=== PATIENT | female | born 1990 | race Caucasian/White ===

== ENCOUNTER 2019-08-27 18:37 | Emergency (ER) | payer OTHER ==
[~2019-08-27] VITALS: Ht 175.3 cm; Wt 72.6 kg
[2019-08-27 18:42] VITALS: BP 134/90
[2019-08-27 19:03] LABS: URINE BILIRUBIN NEGATIVE (Negative); URINE BLOOD NEGATIVE (Negative); URINE CLARITY CLEAR; URINE COLOR YELLOW; URINE GLUCOSE-RANDOM* NEGATIVE (Negative); URINE KETONES NEGATIVE (Negative); URINE LEUKOCYTES-REFLEX NEGATIVE (Negative); URINE NITRITE-REFLEX NEGATIVE (Negative); URINE PROTEIN (DIPSTICK) NEGATIVE (Negative); URINE SPECIFIC GRAVITY 1.015 (1.005-1.035); URINE UROBILINOGEN 0.2 E.U./dl (0.2-1.0)
[2019-08-27 19:34] LABS: ABSOLUTE NEUTROPHILS 3.3 thou/uL (1.4-8.2); BASOPHILS 0.8 % (0.0-2.0); EOSINOPHILS 1.6 % (0.0-3.0); HEMATOCRIT 35.8 % (37.0-47.0); HEMOGLOBIN 11.9 gm/dL (12.0-15.0); MCHC 33.3 g/dL (28.0-37.0); MCV 84.1 fL (80.0-100.0); MONOCYTES 4.7 % (1.0-8.0); PLATELET COUNT 241 thou/uL (150-400); POLYS 53.9 % (36.0-66.0); RBC 4.26 mil/uL (4.20-5.00); WBC 6.2 thou/uL (4.0-11.0)
[2019-08-27 19:47] LABS: CALCIUM 8.8 mg/dL (8.5-10.1); CREATININE 0.8 mg/dL (0.6-1.0); POTASSIUM 3.5 mmol/L (3.5-5.1)
[2019-08-27 19:53] LABS: ALBUMIN 3.9 g/dL (3.4-5.0); TOTAL BILIRUBIN 0.2 mg/dL (<0.1-1.0); TOTAL PROTEIN 6.9 g/dL (6.4-8.2)
[2019-08-27] MEDS ORDERED: ONDANSETRON HCL4 M2 PO (21:05)
[2019-08-27] MEDS ORDERED: NORCO 5-325 TA1 EAC1 PO (21:05)
== END 2019-08-27 22:05 | disposition home or self-care (01) ==
LOC: ER 18:37
PROVIDERS: Physician Assistant
DX: K52.9 Noninfective gastroenteritis and colitis, unspecified (principal); R11.2 Nausea with vomiting, unspecified; Z88.8 Allergy status to other drugs, medicaments and biological substances

== ENCOUNTER 2019-11-03 18:54 | Emergency (ER) | payer OTHER ==
[~2019-11-03] VITALS: Ht 180.3 cm; Wt 72.6 kg
[~2019-11-03 18:54] MED LIST: NORCO 5-325 TA1 EAC1 PO; ONDANSETRON HCL4 M2 PO
[2019-11-03 19:35] LABS: ABSOLUTE NEUTROPHILS 3.9 thou/uL (1.4-8.2); BASOPHILS 0.5 % (0.0-2.0); EOSINOPHILS 0.6 % (0.0-3.0); HEMATOCRIT 34.2 % (37.0-47.0); HEMOGLOBIN 11.5 gm/dL (12.0-15.0); LYMPHOCYTES 21.8 % (24.0-44.0); MCH 27.1 pg (26.0-34.0); MCHC 33.4 g/dL (28.0-37.0); MCV 81.2 fL (80.0-100.0); MONOCYTES 4.7 % (1.0-8.0); PLATELET COUNT 241 thou/uL (150-400); POLYS 72.4 % (36.0-66.0); RBC 4.22 mil/uL (4.20-5.00); RDW 16.9 % (10.5-14.5); WBC 5.4 thou/uL (4.0-11.0)
[2019-11-03 19:39] LABS: URINE BILIRUBIN NEGATIVE (Negative); URINE BLOOD NEGATIVE (Negative); URINE CLARITY CLEAR; URINE COLOR YELLOW; URINE GLUCOSE-RANDOM* NEGATIVE (Negative); URINE KETONES TRACE (Negative); URINE LEUKOCYTES-REFLEX NEGATIVE (Negative); URINE NITRITE-REFLEX NEGATIVE (Negative); URINE PROTEIN (DIPSTICK) NEGATIVE (Negative); URINE SPECIFIC GRAVITY 1.025 (1.005-1.035); URINE UROBILINOGEN 0.2 E.U./dl (0.2-1.0)
[2019-11-03 19:50] LABS: CALCIUM 9.4 mg/dL (8.5-10.1); CREATININE 0.8 mg/dL (0.6-1.0); POTASSIUM 3.5 mmol/L (3.5-5.1)
[2019-11-03 19:55] LABS: ALBUMIN 4.1 g/dL (3.4-5.0); TOTAL BILIRUBIN 0.4 mg/dL (0.2-1.0); TOTAL PROTEIN 7.7 g/dL (6.4-8.2)
[2019-11-03] MEDS ORDERED: ZOFRAN ODT4 MG PO (23:22)
[2019-11-03 23:42] VITALS: BP 106/60
== END 2019-11-03 23:45 | disposition home or self-care (01) ==
LOC: ER 18:54
PROVIDERS: Emergency Medicine
DX: R10.32 Left lower quadrant pain (principal); R11.2 Nausea with vomiting, unspecified; R19.7 Diarrhea, unspecified; Z87.891 Personal history of nicotine dependence; Z79.899 Other long term (current) drug therapy; Z88.8 Allergy status to other drugs, medicaments and biological substances; Z90.49 Acquired absence of other specified parts of digestive tract

== ENCOUNTER 2020-02-12 10:02 | Emergency (ER) | payer OTHER ==
[~2020-02-12] VITALS: Ht 175.3 cm; Wt 74.8 kg
[~2020-02-12 10:02] MED LIST changes: +ZOFRAN ODT4 MG PO
[2020-02-12 10:43] LABS: URINE BILIRUBIN NEGATIVE (Negative); URINE BLOOD NEGATIVE (Negative); URINE COLOR YELLOW; URINE GLUCOSE-RANDOM* NEGATIVE (Negative); URINE KETONES NEGATIVE (Negative); URINE LEUKOCYTES-REFLEX NEGATIVE (Negative); URINE NITRITE-REFLEX NEGATIVE (Negative); URINE PROTEIN (DIPSTICK) NEGATIVE (Negative); URINE SPECIFIC GRAVITY 1.025 (1.005-1.035); URINE UROBILINOGEN 0.2 E.U./dl (0.2-1.0)
[2020-02-12 10:44] LABS: URINE CLARITY SL HAZY
[2020-02-12 10:46] LABS: ABSOLUTE NEUTROPHILS 5.2 thou/uL (1.4-8.2); BASOPHILS 0.3 % (0.0-2.0); EOSINOPHILS 0.8 % (0.0-3.0); HEMATOCRIT 34.4 % (37.0-47.0); HEMOGLOBIN 11.1 gm/dL (12.0-15.0); LYMPHOCYTES 14.5 % (24.0-44.0); MCH 26.1 pg (26.0-34.0); MCHC 32.3 g/dL (28.0-37.0); MCV 80.8 fL (80.0-100.0); MONOCYTES 4.4 % (1.0-8.0); PLATELET COUNT 246 thou/uL (150-400); RBC 4.26 mil/uL (4.20-5.00); RDW 18.3 % (10.5-14.5); WBC 6.5 thou/uL (4.0-11.0)
[2020-02-12 11:25] LABS: ANISOCYTOSIS 1+; POIKILOCYTOSIS SLIGHT
[2020-02-12 11:49] LABS: CALCIUM 9.3 mg/dL (8.5-10.1); CREATININE 0.7 mg/dL (0.6-1.0); POTASSIUM 3.7 mmol/L (3.5-5.1)
[2020-02-12 11:54] LABS: ALBUMIN 4.1 g/dL (3.4-5.0); TOTAL BILIRUBIN 0.4 mg/dL (0.2-1.0); TOTAL PROTEIN 7.6 g/dL (6.4-8.2)
[2020-02-12 13:02] VITALS: BP 122/73
== END 2020-02-12 13:02 | disposition home or self-care (01) ==
LOC: ER 10:02
PROVIDERS: Emergency Medicine
DX: R10.9 Unspecified abdominal pain (principal); R11.2 Nausea with vomiting, unspecified; K92.1 Melena; Z79.899 Other long term (current) drug therapy; Z88.5 Allergy status to narcotic agent; Z88.8 Allergy status to other drugs, medicaments and biological substances

== ENCOUNTER 2021-04-05 00:12 | Emergency (ER) | payer OTHER ==
[~2021-04-05] VITALS: Ht 175.3 cm; Wt 76.2 kg
[~2021-04-05 00:12] MED LIST changes: +AZITHROMYCIN500 MG PO; +CEFDINIR300 MG PO; +HUMIRA CRO40 MG/0.8 SUBQ; +HYDROCODON-ACE1 EAC7 PO; +HYDROCODON-ACE1 EAC8 PO; +IBUPROFEN 800800 M1 PO; +NORCO5 PO; +PHENERGAN 25 MG25 M1 PO; +PREDNISONE 10 M10 MG PO; +PREDNISONE 20 M20 M1 PO; +PREDNISONE50 MG PO; +PROTONIX40 M4 PO; +VOLTAREN ARTHRI20 GM TOP; +ZOFRAN ODT4 MG DISSOLVE
[2021-04-05] MEDS ORDERED: PHENERGAN 25 MG25 M1 PO (01:09)
[2021-04-05] MEDS ORDERED: PREDNISONE 10 M10 M1 PO (01:09)
[2021-04-05 01:16] LABS: BASOPHILS 0.7 % (0.0-2.0); HEMATOCRIT 31.4 % (37.0-47.0); HEMOGLOBIN 10.4 gm/dL (12.0-15.0); LYMPHOCYTES 28.8 % (24.0-44.0); MCHC 33.1 g/dL (28.0-37.0); MCV 81.6 fL (80.0-100.0); MONOCYTES 7.1 % (1.0-8.0); PLATELET COUNT 211 thou/uL (150-400); POLYS 62.4 % (36.0-66.0); RBC 3.85 mil/uL (4.20-5.00); RDW 17.3 % (10.5-14.5); WBC 6.4 thou/uL (4.0-11.0)
[2021-04-05 01:18] LABS: CALCIUM 8.6 mg/dL (8.5-10.1); CREATININE 0.8 mg/dL (0.6-1.0); POTASSIUM 3.5 mmol/L (3.5-5.1)
[2021-04-05 01:24] LABS: ALBUMIN 3.5 g/dL (3.4-5.0); TOTAL BILIRUBIN 0.2 mg/dL (0.2-1.0); TOTAL PROTEIN 6.7 g/dL (6.4-8.2)
[2021-04-05 03:26] VITALS: BP 116/74
== END 2021-04-05 03:27 | disposition home or self-care (01) ==
LOC: ER 00:12
PROVIDERS: Emergency Medicine
DX: K50.90 Crohn's disease, unspecified, without complications (principal); Z90.89 Acquired absence of other organs; Z90.49 Acquired absence of other specified parts of digestive tract; Z79.891 Long term (current) use of opiate analgesic; Z79.899 Other long term (current) drug therapy; Z88.8 Allergy status to other drugs, medicaments and biological substances; Z88.5 Allergy status to narcotic agent; Z88.6 Allergy status to analgesic agent; Z88.3 Allergy status to other anti-infective agents